=== PATIENT | male | born 1930 | race Caucasian/White ===

== ENCOUNTER 2017-02-08 17:48 | Observation (INO) | payer OTHER ==
[~2017-02-08] VITALS: Ht 170.2 cm; Wt 79.5 kg
[~2017-02-08 17:48] MED LIST: DIAZEPAM5 MG PO; FLOMAX0.4 M1 PO; INDERAL40 MG PO; JANUVIA100 MG; JANUVIA100 MG PO; LIPITOR20 MG; LIPITOR20 MG PO; LOSARTAN-HCTZ1 EACH; LOSARTAN-HCTZ1 EACH PO; Levaquin PO; Lopressor PO; METFORMIN HCL500 MG PO; OMEPRAZOLE40 M1 PO; PROPANOLOL; VALIUM5 MG PO
[2017-02-08 18:24] LABS: HEMATOCRIT 34.5 % (38.0-50.0); MCH 29.1 PG (29.0-34.0); MCHC 33.3 G/DL (30.0-36.0); MCV 87.3 FL (86-99); MEAN PLAT.VOLUME 9.1 uM^3 (9.0-12.4); PLATELET COUNT 182 K/uL (156-360); RBC DIS.WIDTH-CV 13.7 % (11.8-14.6); RBC DIS.WIDTH-SD 43.8 % (39-53); RED BLOOD COUNT 3.95 M/uL (4.00-5.50); WHITE BLOOD COUNT 9.2 K/uL (4.1-10.2)
[2017-02-08 18:35] LABS: CHLORIDE 107 mEq/L (99-109); POTASSIUM 4.5 mEq/L (3.7-5.4); SODIUM 137 mEq/L (136-147)
[2017-02-08 18:37] LABS: GLUCOSE 158 mg/dL (70-99)
[2017-02-08 18:38] LABS: ANION GAP 10 MEQ/L (2-14)
[2017-02-08 18:40] LABS: GFR ESTIMATE (CALCULATED) > 59 mL/min/
[2017-02-08 18:41] LABS: UREA NITROGEN (BUN) 25 mg/dL (9-23)
[2017-02-08 18:45] LABS: INTER. NORMALIZED RATIO 1.1
[2017-02-08 18:49] LABS: TROP-I INTERPRETATION NEGATIVE; TROPONIN-I 0.02 ng/mL (0.0-0.30)
[2017-02-08 21:33] VITALS: BP 172/83
[2017-02-08 21:35] VITALS: BP 172/83
[2017-02-08 21:36] VITALS: BP 118/77; BP 161/95
[2017-02-08 22:00] VITALS: BP 118/77; BP 161/95; BP 172/83
[2017-02-08] MEDS ORDERED: GLUCOPHAGE1000 MG PO (22:09)
[2017-02-08] MEDS ORDERED: FLOMAX0.4 MG PO (22:10)
[2017-02-08] MEDS ORDERED: LOPRESSOR50 MG PO (22:10)
[2017-02-08] MEDS ORDERED: NOVOLOG PE100 UNITS/ SC (22:12)
[2017-02-08] MEDS ORDERED: OCUVITE TABLET1 EACH PO (22:13)
[2017-02-08] MEDS ORDERED: LANTUS 3 M100 UNITS1 SC (22:13)
[2017-02-08 22:37] LABS: POINT-OF-CARE METER ID UU14100415
[2017-02-09 00:44] VITALS: BP 141/88
[2017-02-09 03:42] VITALS: BP 124/59
[2017-02-09 06:35] LABS: EOSINOPHIL (%) 1.4 % (0-5); EOSINOPHIL COUNT 0.1 K/uL (0-0.3); HEMATOCRIT 32.8 % (38.0-50.0); IMMATURE GRANULOCYTE (%) 0.4 % (0.0-0.7); INSTRUMENT ABS NEUTROPHIL CT 6.2 K/uL; LYMPHOCYTE COUNT 0.9 K/uL (1.0-2.8); MCHC 33.5 G/DL (30.0-36.0); MCV 86.5 FL (86-99); MEAN PLAT.VOLUME 8.8 uM^3 (9.0-12.4); MONOCYTE (%) 8.6 % (3-12); MONOCYTE COUNT 0.7 K/uL (0-0.8); NEUTROPHIL (%) 78.1 % (45-76); NEUTROPHIL COUNT 6.2 K/uL (1.8-6.4); PLATELET COUNT 169 K/uL (156-360); RBC DIS.WIDTH-CV 13.7 % (11.8-14.6); RBC DIS.WIDTH-SD 42.3 % (39-53); RED BLOOD COUNT 3.79 M/uL (4.00-5.50); WHITE BLOOD COUNT 7.9 K/uL (4.1-10.2)
[2017-02-09 06:59] LABS: ANION GAP 9 MEQ/L (2-14); CHLORIDE 111 MEQ/L (99-109); DIRECT BILIRUBIN 0.1 mg/dL (0.0-0.3); POTASSIUM 3.6 MEQ/L (3.7-5.4); SAMPLE HEMOLYSIS CHECK 0; SAMPLE ICTERIC CHECK 0; SAMPLE LIPEMIA CHECK 0; SODIUM 141 MEQ/L (136-147); TOTAL BILIRUBIN 0.5 MG/DL (0.0-1.0)
[2017-02-09 07:05] LABS: ALKALINE PHOSPHATASE 76 IU/L (3-129); GFR ESTIMATE (CALCULATED) > 59 mL/min/; UREA NITROGEN (BUN) 16 mg/dL (9-23)
[2017-02-09 07:06] LABS: GLUCOSE 106 mg/dL (70-99)
[2017-02-09 07:50] VITALS: BP 124/59
[2017-02-09 11:46] LABS: POINT-OF-CARE METER ID UU14100415
[2017-02-09 12:08] VITALS: BP 160/81
[2017-02-09] MEDS ORDERED: FLOMAX0.4 MG PO (15:19)
[2017-02-09] MEDS ORDERED: LO-DOSE ASPIRIN81 M1 PO (15:25)
== END 2017-02-09 16:28 | disposition home or self-care (01) ==
LOC: EME 17:48 → EDOF 20:10 → ENRESERV 20:13 → EDOF 21:31
PROVIDERS: Emergency Medicine; Internal Medicine
DX: I95.1 Orthostatic hypotension (principal); I48.0 Paroxysmal atrial fibrillation; I10 Essential (primary) hypertension; E78.5 Hyperlipidemia, unspecified; E11.9 Type 2 diabetes mellitus without complications; N40.0 Benign prostatic hyperplasia without lower urinary tract symptoms; I47.1 Supraventricular tachycardia; K21.9 Gastro-esophageal reflux disease without esophagitis; R26.2 Difficulty in walking, not elsewhere classified; Z91.81 History of falling; F41.9 Anxiety disorder, unspecified; Z79.4 Long term (current) use of insulin; Z79.82 Long term (current) use of aspirin; Z87.891 Personal history of nicotine dependence; Z82.3 Family history of stroke; Z82.5 Family history of asthma and other chronic lower respiratory diseases
CPT/HCPCS: 71020; 80048; 80076; 82948; 84484; 85025; 85027; 85610; 85730; 93005; 93306; 93880; 99281; 99285; G0378; J1160; J1650; J1815; J7030

== ENCOUNTER 2017-09-10 10:06 | Observation (INO) | payer OTHER ==
[~2017-09-10] VITALS: Ht 170.2 cm; Wt 75.6 kg
[~2017-09-10 10:06] MED LIST changes: +FLOMAX0.4 MG PO; +GLUCOPHAGE1000 MG PO; +LANTUS 3 M100 UNITS1 SC; -LIPITOR20 MG PO; +LIPITOR40 MG PO; +LO-DOSE ASPIRIN81 M1 PO; +LOPRESSOR50 MG PO; +NOVOLOG PE100 UNITS/ SC; +OCUVITE TABLET1 EACH PO; -OMEPRAZOLE40 M1 PO; +PRILOSEC20 MG PO
[2017-09-10 11:58] LABS: HEMATOCRIT 36.9 % (38.0-50.0); HEMOGLOBIN 12.4 G/DL (12.5-16.6); MCH 29.1 PG (29.0-34.0); MCHC 33.6 G/DL (30.0-36.0); MCV 86.6 FL (86-99); PLATELET COUNT 195 K/uL (156-360); RBC DIS.WIDTH-CV 13.6 % (11.8-14.6); RBC DIS.WIDTH-SD 43.1 % (39-53); RED BLOOD COUNT 4.26 M/uL (4.00-5.50); WHITE BLOOD COUNT 6.7 K/uL (4.1-10.2)
[2017-09-10 12:32] LABS: TROP-I INTERPRETATION NEGATIVE; TROPONIN-I 0.04 ng/mL (0.0-0.30)
[2017-09-10 12:35] LABS: CHLORIDE 104 MEQ/L (99-109); CREATININE 0.9 MG/DL (0.6-1.3); GFR ESTIMATE (CALCULATED) > 59 mL/min/ (58.99-99999); GLUCOSE 110 mg/dL (70-99); POTASSIUM 4.8 MEQ/L (3.7-5.4); SODIUM 139 MEQ/L (136-147); UREA NITROGEN (BUN) 27 mg/dL (9-23)
[2017-09-10 14:54] LABS: APPEARANCE CLEAR ((CLEAR)); BILIRUBIN NEGATIVE; BLOOD NEGATIVE; COLOR STRAW ((YELLOW)); GLUCOSE (STRIP) NEGATIVE; KETONES NEGATIVE; LEUKOCYTES NEGATIVE; NITRITE NEGATIVE; PROTEIN (STRIP) NEGATIVE; UCUL ADDED? NO; UROBILINOGEN 0.2 MG/DL (0.2-1.0)
[2017-09-10] MEDS ORDERED: ELIQUIS5 MG PO (15:22)
[2017-09-10] MEDS ORDERED: DIGOX125 MCG PO (15:23)
[2017-09-10] MEDS ORDERED: FLEXERIL5 MG PO (15:24)
[2017-09-10] MEDS ORDERED: HUMALOG100 UNIT/2 SC (15:25)
[2017-09-10] MEDS ORDERED: BASAGLAR K100 UNIT/1 SC (15:26)
[2017-09-10] MEDS ORDERED: PRESERVISION T1 EACH PO (15:27)
[2017-09-10 18:42] VITALS: BP 124/63
[2017-09-10 18:50] VITALS: BP 124/63
[2017-09-10 19:00] VITALS: BP 130/75
[2017-09-10 21:00] VITALS: BP 135/79
[2017-09-10 22:00] VITALS: BP 127/67
[2017-09-10 23:00] VITALS: BP 172/105
[2017-09-11] VITALS (22 sets, daily range): BP systolic 101–219; BP diastolic 60–113
[2017-09-11 00:53] LABS: TROP-I INTERPRETATION NEGATIVE; TROPONIN-I 0.03 ng/mL (0.0-0.30)
[2017-09-11 05:19] LABS: HEMATOCRIT 35.7 % (38.0-50.0); HEMOGLOBIN 11.8 G/DL (12.5-16.6); MCH 28.1 PG (29.0-34.0); MCHC 33.1 G/DL (30.0-36.0); PLATELET COUNT 176 K/uL (156-360); RBC DIS.WIDTH-CV 13.4 % (11.8-14.6); RBC DIS.WIDTH-SD 41.5 % (39-53); WHITE BLOOD COUNT 4.4 K/uL (4.1-10.2)
[2017-09-11 05:46] LABS: TROP-I INTERPRETATION NEGATIVE; TROPONIN-I 0.04 ng/mL (0.0-0.30)
[2017-09-11 05:52] LABS: ALBUMIN 3.8 G/DL (3.2-4.8); ALKALINE PHOSPHATASE 72 IU/L (3-129); ALT (GPT) 13 IU/L (3-49); AST (GOT) 17 IU/L (2-34); CHLORIDE 108 MEQ/L (99-109); CREATININE 0.7 MG/DL (0.6-1.3); GFR ESTIMATE (CALCULATED) > 59 mL/min/ (58.99-99999); GLUCOSE 113 mg/dL (70-99); POTASSIUM 3.9 MEQ/L (3.7-5.4); SODIUM 141 MEQ/L (136-147); TOTAL BILIRUBIN 0.4 MG/DL (0.0-1.0); TOTAL PROTEIN 5.9 G/DL (6.4-8.3); UREA NITROGEN (BUN) 21 mg/dL (9-23)
[2017-09-12] VITALS (9 sets, daily range): BP systolic 98–174; BP diastolic 64–98
[2017-09-12 10:19] LABS: HEMOGLOBIN A1c (GLYCOHEMOGLOB) 7.4 % (Below 5.7)
== END 2017-09-12 17:15 | disposition home or self-care (01) ==
LOC: EME 10:06 → EDOF 15:50 → 4WEST 15:50 → ENRESERV 15:53 → EDOF 17:13 → ENRESERV 17:14 → 4WEST 18:38
PROVIDERS: Internal Medicine; Physician Assistant Medical
DX: I95.1 Orthostatic hypotension (principal); E11.40 Type 2 diabetes mellitus with diabetic neuropathy, unspecified; I48.0 Paroxysmal atrial fibrillation; I10 Essential (primary) hypertension; M47.812 Spondylosis without myelopathy or radiculopathy, cervical region; R53.1 Weakness; K21.9 Gastro-esophageal reflux disease without esophagitis; H91.90 Unspecified hearing loss, unspecified ear; E78.5 Hyperlipidemia, unspecified; N40.0 Benign prostatic hyperplasia without lower urinary tract symptoms; Z79.4 Long term (current) use of insulin; Z79.01 Long term (current) use of anticoagulants; Z79.82 Long term (current) use of aspirin; Z88.1 Allergy status to other antibiotic agents; Z88.5 Allergy status to narcotic agent; Z88.2 Allergy status to sulfonamides; Z82.3 Family history of stroke; Z82.49 Family history of ischemic heart disease and other diseases of the circulatory system; Z90.49 Acquired absence of other specified parts of digestive tract; Z96.653 Presence of artificial knee joint, bilateral
CPT/HCPCS: 70450; 70544; 70551; 72141; 80048; 80053; 81003; 82948; 83036; 84484; 85027; 87641; 93005; 97530 GO; 99281; 99285; G0378; G8978 GP CK; G8979 CJ; G8980 GP CK; G8987 GO CJ; G8988 CI; G8989 CJ; J1815; J2060; J7040; J7050